=== PATIENT | female | born 1990 | race Caucasian/White ===

== ENCOUNTER → 2017-09-19 16:21 | Outpatient (CLI) | payer OTHER, SELFPAY ==
[2017-09-19 16:55] LABS: HCG Qualitative, Serum Negative (Negative)
== END ==
PROVIDERS: Visit Provider Internal Medicine
DX: Z34.90 Encounter for supervision of normal pregnancy, unspecified, unspecified trimester (principal)
CPT/HCPCS: 84703

== ENCOUNTER → 2017-11-09 14:03 | Outpatient (CLI) | payer OTHER, SELFPAY ==
--- NOTE | 2017-11-09 14:05 | XR_ITS ---
XR chest 2V HISTORY: ITS.REASON: cough ORDERING PHYSICIAN: CLEVE Kowalski PATIENT AGE: 27 years COMPARISON: 03/21/2012 FINDINGS: The cardiomediastinal silhouette and pulmonary vascularity are within normal limits. The lungs are clear without infiltrates, suspicious nodules, or pleural effusions. No acute bony abnormalities. IMPRESSION: Negative chest, no acute finding
== END ==
PROVIDERS: PCP Internal Medicine; Visit Provider Physician Assistant
DX: R05 Cough (principal)
CPT/HCPCS: 71046

== ENCOUNTER → 2018-01-27 15:58 | Outpatient (CLI) | payer OTHER, SELFPAY ==
--- NOTE | 2018-01-27 16:00 | XR_ITS ---
XR chest 2V HISTORY: ITS.REASON: PERSISTENT COUGH ORDERING PHYSICIAN: Brody Fernandez PATIENT AGE: 27 years COMPARISON: 11/09/2017 FINDINGS: The cardiomediastinal silhouette and pulmonary vascularity are within normal limits. The lungs are clear without infiltrates, suspicious nodules, or pleural effusions. No acute bony abnormalities. IMPRESSION: Negative chest, no acute finding
== END ==
PROVIDERS: PCP Internal Medicine; Visit Provider Internal Medicine
DX: R05 Cough (principal)
CPT/HCPCS: 71046

== ENCOUNTER → 2018-02-16 14:45 | Outpatient (CLI) | payer OTHER, SELFPAY ==
[2018-02-16 16:02] LABS: HCG,Quantitative 0 mIU/mL
== END ==
PROVIDERS: Visit Provider Obstetrics & Gynecology
DX: Z34.90 Encounter for supervision of normal pregnancy, unspecified, unspecified trimester (principal)
CPT/HCPCS: 36415; 84702

== ENCOUNTER → 2018-06-12 16:17 | Outpatient (CLI) | payer OTHER, SELFPAY ==
[2018-06-12 16:52] LABS: Basophils % 0.5 % (0.1-2.0); Eosinophils # 0.1 K/mm3 (0.0-0.4); Eosinophils % 1.5 % (0.1-12.0); Hemoglobin 12.5 g/dL (12.2-16.2); Lymphocytes # 2.1 K/mm3 (0.7-4.5); Lymphocytes % 23.9 % (10-50); Mean Corpuscular HGB Conc 32.9 g/dL (31.8-35.4); Mean Corpuscular Hemoglobin 26.8 pg (27.0-31.2); Mean Corpuscular Volume 81.6 fl (81-99); Mean Platelet Volume 7.3 fl (7.4-10.4); Monocytes # 0.4 K/mm3 (0.1-1.0); Monocytes % 4.6 % (1.7-9.3); Neutrophils # 6.1 K/mm3 (1.8-7.8); Neutrophils % 69.5 % (37.0-80.0); Platelet Count 381 K/mm3 (142-424); Red Blood Count 4.66 M/mm3 (4.20-5.40); White Blood Count 8.8 K/mm3 (4.8-10.8)
[2018-06-12 17:58] LABS: Anion Gap 16.3 mEq/L (5-15); Blood Urea Nitrogen 11 mg/dL (7-18); Carbon Dioxide 25 mmol/L (21.0-32.0); Chloride 103 mmol/L (98-107); Estimated Glomerular Filt Rate 86 ml/min (>60); Free T4 (Free Thyroxine) 1.05 ng/dl (0.76-1.46); GFR (African American) 104 ML/MIN (>60); Glucose 102 mg/dL (74-106); HCG,Quantitative 0 mIU/mL; Potassium 4.3 mmoL/L (3.5-5.1); Sodium 140 mmol/L (136-145); Thyroid Stimulating Hormone 1.49 uIU/ml (0.358-3.740)
== END ==
PROVIDERS: Visit Provider Urology
DX: N89.8 Other specified noninflammatory disorders of vagina (principal); N91.2 Amenorrhea, unspecified; R53.83 Other fatigue
CPT/HCPCS: 36415; 80048; 84439; 84443; 84702; 85025

== ENCOUNTER → 2019-01-15 15:04 | Outpatient (CLI) | payer OTHER, SELFPAY ==
[2019-01-15 15:28] LABS: Basophils % 0.5 % (0.1-2.0); Eosinophils # 0.2 K/mm3 (0.0-0.4); Eosinophils % 2.5 % (0.1-12.0); Hematocrit 42.3 % (37.0-47.0); Hemoglobin 13.5 g/dL (12.2-16.2); Lymphocytes # 2.4 K/mm3 (0.7-4.5); Lymphocytes % 28.4 % (10-50); Mean Corpuscular Hemoglobin 27.8 pg (27.0-31.2); Mean Corpuscular Volume 86.8 fl (81-99); Monocytes # 0.4 K/mm3 (0.1-1.0); Monocytes % 5.1 % (1.7-9.3); Neutrophils # 5.4 K/mm3 (1.8-7.8); Neutrophils % 63.5 % (37.0-80.0); Platelet Count 457 K/mm3 (142-424); Red Blood Count 4.88 M/mm3 (4.20-5.40); Red Cell Distribution Width 12.7 % (11.5-17.5); White Blood Count 8.5 K/mm3 (4.8-10.8)
[2019-01-15 17:13] LABS: HCG Qualitative, Serum Negative (Negative)
[2019-01-15 17:27] LABS: Anion Gap 13.4 mEq/L (5-15); Blood Urea Nitrogen 11 mg/dL (7-18); Calcium 9.4 mg/dL (8.5-10.1); Carbon Dioxide 29 mmol/L (21.0-32.0); Chloride 101 mmol/L (98-107); Creatinine,Serum 0.58 mg/dL (0.55-1.02); Estimated Glomerular Filt Rate 125 ml/min (>60); Free T4 (Free Thyroxine) 0.98 ng/dl (0.76-1.46); GFR (African American) 151 ML/MIN (>60); Glucose 88 mg/dL (74-106); Potassium 4.4 mmoL/L (3.5-5.1); Sodium 139 mmol/L (136-145); Thyroid Stimulating Hormone 2.86 uIU/ml (0.358-3.740)
== END ==
PROVIDERS: Visit Provider Urology
DX: R50.9 Fever, unspecified (principal); R53.83 Other fatigue
CPT/HCPCS: 36415; 80048; 84439; 84443; 84703; 85025

== ENCOUNTER 2019-05-18 13:27 | Outpatient (RCR) | payer OTHER, SELFPAY | END 2019-05-18 14:00 | disposition home or self-care (01) | LOC: OT 13:27 | PROVIDERS: Visit Provider Orthopaedic Surgery | DX: S52.502A Unspecified fracture of the lower end of left radius, initial encounter for closed fracture (principal) | CPT/HCPCS: 97763 ==

== ENCOUNTER → 2019-05-29 08:41 | Outpatient (CLI) | payer OTHER, SELFPAY ==
--- NOTE | 2019-05-29 08:43 | XR_ITS ---
PROCEDURE: XR WRIST LT MIN 3V CLINICAL INDICATION: left wrist fracture, after cast removal Follow-up, and COMPARISON: XR HAND LT MIN 3V from 05/08/2019 XR WRIST LT MIN 3V from 05/08/2019 FINDINGS: There is a small curvilinear band of increased density at the distal radius at the epiphyseal remnant region suggesting a healing fracture. No displacement or other significant anomalies evident. IMPRESSION: Healing nondisplaced fracture distal radius Dictated by: Fabrizio Ramos MD 05/29/2019 09:08 Electronically signed by Fabrizio Ramos MD in [place] 05/29/2019 09:08
== END ==
PROVIDERS: PCP Internal Medicine; Visit Provider Orthopaedic Surgery
DX: S63.502A Unspecified sprain of left wrist, initial encounter (principal)
CPT/HCPCS: 73110

== ENCOUNTER 2019-08-01 15:00 | Outpatient (RCR) | payer OTHER, SELFPAY ==
--- NOTE | 2019-06-22 11:31 | HMH.OTOPEV ---
OT Inpatient Evaluation Rehab OT Outpatient Eval Start: 06/22/19 11:23 Freq: Status: Active Protocol: Document 06/22/19 11:23 NASIR (Rec: 06/22/19 11:31 [id number] [id number]) Electronically Signed By Martin Guevara OT 06/22/19 11:23 Outpatient Therapy Subjective History Subjective History Pt is a 29 year old female who reports to therapy due to L wrist fx. Pt fell on May 10, 2019 and landed on left wrist resulting in a distal radius fracture. Pt was in a cast for 14 days and then a removable wrist brace. Pt reports minimal pain and stiffness at left wrist. Pt demosntrates with slight decreased AROM and strength at left wrist. Pt will continue to be seen in order to decrease deficits. Chief Complaint Pain,Stiff,Weakness Symptom Type Ache,Throb,Sharp Symptoms Relieved By Nothing Symptoms Aggravated By Physical Activity,Lifting Prior Functional Limitations None Current Functional Limitations Reaching,Lifting,Housework, Recreation Activity Symptom Description Intermittent,Activity Dependent Level of pain today (0-10) 0 Pain scale - at its best (0-10) 0 Pain scale - at its worst (0-10) 5 Wrist/Hand Eval Wrist Range of Motion Left Wrist Extension Active Range of Motion ( 60 degrees degrees) Wrist Flexion Active Range of Motion ( 50 degrees degrees) Wrist Radial Deviation Active Range of 25 degrees Motion (degrees) Wrist Ulnar Deviation Active Range of 25 degrees Motion (degrees) Forearm Supination Active Range of 90 degrees Motion (degrees) Forearm Pronation Active Range of Motion 90 degrees (degrees) Wrist Manual Muscle Testing Left Wrist Extension Strength Grade 4- Good- Wrist Flexion Strength Grade 3+ Fair+ Wrist Radial Deviation Strength Grade 3+ Fair+ Wrist Ulnar Deviation Strength Grade 3+ Fair+ Forearm Supination Strength Grade 4- Good- Forearm Pronation Strength Grade 4- Good- OT Outpatient Assessment Impairments Problems/Impairments Palpation Tenderness,Impaired Range of Motion,Impaired Strength,Impaired Endurance, Impaired Lifting,Impaired Household Care,Impaired
== END 2019-08-01 15:05 | disposition home or self-care (01) ==
LOC: OT 15:00
PROVIDERS: PCP Internal Medicine; Visit Provider Orthopaedic Surgery
DX: S52.592D Other fractures of lower end of left radius, subsequent encounter for closed fracture with routine healing (principal)
CPT/HCPCS: 97014; 97110; 97140; 97165; G0283

== ENCOUNTER → 2019-09-05 12:44 | Outpatient (CLI) | payer OTHER, SELFPAY ==
[2019-09-05 13:29] LABS: Basophils % 0.5 % (0.1-2.0); Eosinophils # 0.3 K/mm3 (0.0-0.4); Eosinophils % 2.7 % (0.1-12.0); Hematocrit 41.8 % (37.0-47.0); Hemoglobin 14.1 g/dL (12.2-16.2); Lymphocytes # 2.3 K/mm3 (0.7-4.5); Lymphocytes % 25.3 % (10-50); Mean Corpuscular HGB Conc 33.7 g/dL (31.8-35.4); Mean Corpuscular Hemoglobin 28.1 pg (27.0-31.2); Mean Corpuscular Volume 83.3 fl (81-99); Mean Platelet Volume 7.5 fl (7.4-10.4); Monocytes # 0.4 K/mm3 (0.1-1.0); Monocytes % 4.7 % (1.7-9.3); Neutrophils # 6.1 K/mm3 (1.8-7.8); Neutrophils % 66.8 % (37.0-80.0); Platelet Count 426 K/mm3 (142-424); Red Blood Count 5.02 M/mm3 (4.20-5.40); Red Cell Distribution Width 13.1 % (11.5-17.5); White Blood Count 9.1 K/mm3 (4.8-10.8)
[2019-09-05 14:03] LABS: Chloride 102 mmol/L (98-107)
[2019-09-05 14:04] LABS: Potassium 4.8 mmoL/L (3.5-5.1); Sodium 137 mmol/L (136-145)
[2019-09-05 14:06] LABS: Alanine Aminotransferase 30 U/L (12-78); Alkaline Phosphatase 69 U/L (38-126); Anion Gap 12.8 mEq/L (5-15); Aspartate Amino Transferase 27 U/L (14-36); Bilirubin,Direct 0.3 mg/dl (0.0-0.4); Bilirubin,Total 0.3 mg/dl (0.2-1.3); Bilirubin,Unconjugated 0.1 mg/dL (0.0-1.1); Blood Urea Nitrogen 11 mg/dl (7-17); Carbon Dioxide 27 mmol/L (22.0-30.0); Cholesterol 146 mg/dl (140-200); Estimated Glomerular Filt Rate 147 ml/min (>60); GFR (African American) 178 ML/MIN (>60); Triglycerides 254 mg/dl (30-150); VLDL Cholesterol 51 mg/dL (0-40)
[2019-09-05 14:07] LABS: Albumin Level 4.4 g/dl (3.5-5.0); Calcium 9.4 mg/dl (8.4-10.2); Chol/HDL Ratio 2.6 (1-3.5); Glucose 97 mg/dl (74-100); HDL Cholesterol 56 mg/dl (40-60); Total Protein,Serum 7.7 g/dl (6.3-8.2)
[2019-09-05 14:19] LABS: Direct LDL Cholesterol 69.53 mg/dL (100-129)
[2019-09-05 14:25] LABS: Free T4 (Free Thyroxine) 1.18 ng/dl (0.78-2.19)
[2019-09-05 14:38] LABS: Thyroid Stimulating Hormone 1.71 uIU/mL (0.465-4.68)
[2019-09-05 20:57] LABS: Coronavirus 19 IgG Antibody Negative (Negative); Coronavirus 19 IgM Antibody Negative (Negative)
== END ==
PROVIDERS: Visit Provider Internal Medicine
DX: R06.00 Dyspnea, unspecified (principal); Z79.899 Other long term (current) drug therapy; Z03.818 Encounter for observation for suspected exposure to other biological agents ruled out
CPT/HCPCS: 36415; 80048; 80061; 80076; 84439; 84443; 85025; 86328

== ENCOUNTER → 2019-10-12 10:58 | Outpatient (CLI) | payer OTHER, SELFPAY ==
--- NOTE | 2019-10-12 11:08 | CT_ITS ---
PROCEDURE: CT ABDOMEN PELVIS W CON CLINICAL INDICATION: ELEVATED DHEA, PCOS, IRREGULAR PERIODS COMPARISON: ABDPELW/WO CT ABD PELVIS W/WO CONTRAST from 12/05/2016 TECHNIQUE: IV Contrast: 75ML OPTIRAY 350 Oral Contrast None Axial images obtained with sagittal and coronal reformats. All CT scans at the facility use one or more dose reduction, viz: automated exposure control, ma/kV adjustment per patient size (including targeted exams where dose is matched to indication, i.e. head), or iterative reconstruction technique. FINDINGS: LOWER THORAX: No acute finding. Included extent of the lung bases are clear. ABDOMEN & PELVIS: Hepatobiliary: There is decreased attenuation of the liver, consistent with steatosis. No discrete hepatic lesion is identified. The gallbladder is surgically absent. Unremarkable biliary ductal system. Pancreas: The pancreas is normal. Spleen: There is a calcified granuloma of the spleen. The spleen is not enlarged. There is an accessory splenule. Adrenals: The adrenal glands are normal. Kidneys, ureters and bladder: Both kidneys have normal size and morphology. There is no hydronephrosis. Both ureters have normal course and caliber. The urinary bladder is unremarkable with uniform wall thickness. Gastrointestinal: The stomach is unremarkable. Fluid filled normally distended small bowel loops are seen. There is possible diffuse submucosal edema with minimal wall thickening of the ascending, transverse and most of the descending colon is seen without pericolonic inflammatory fatty stranding. There is no evidence of mechanical bowel obstruction. Reproductive organs: Normal-appearing anteverted uterus. Small bilateral adnexal/ovarian cysts are seen. Lymphatic system: There is no adenopathy demonstrated within abdomen/pelvis. Vasculature: Normal caliber abdominal aorta. Peritoneum: No free fluid or free intraperitoneal air is seen. Abdominal wall and musculoskeletal: Diastasis of the rectus abdominus with midline mild anterior protrusion of the mesentry and small bowel at the level of the umbilicus. Moderate degenerative disc/endplate changes with vacuum phenomena is seen at L5-S1. IMPRESSION: 1.Possible colitis with diffuse submucosal edema and mild wall thickening of the ascending, transverse and descending colon present. Recommend clinical correlation. 2. Hepatic steatosis. 3. At L5-S1 degenerative disc/spondylitic changes are seen. Dictated by: Lashawn Menjivar 10/12/2019 12:33 Electronically signed by Lashawn Menjivar in [facility] 10/12/2019 12:33
--- NOTE | 2019-10-12 11:08 | CT_ITS ---
PROCEDURE: CT HEAD/BRAIN WO/W CON CLINICAL INDICATION: ELEVATED DHEA, PCOS, IRREGULAR PERIODS COMPARISON: No exams were available for comparison TECHNIQUE: IV Contrast: 100ML OPITRAY 320 Axial images obtained. All CT scans at the facility use one or more dose reduction, viz: automated exposure control, ma/kV adjustment per patient size (including targeted exams where dose is matched to indication, i.e. head), or iterative reconstruction technique. FINDINGS: No midline shift, mass effect, intracranial hemorrhage, hydrocephalus, or extra-axial fluid collection is evident. Preserved sylvester-white matter differentiation.. The calvarium has an unremarkable appearance. Mastoids. Demonstrated mild/moderate inflammatory mucoperiosteal thickening of the visualized right sphenoid sinus and bilateral ethmoid air cells IMPRESSION: 1. No acute intracranial abnormality is demonstrated. 2. Ethmoid and right sphenoid chronic sinusitis. Dictated by: Lashawn Menjivar 10/12/2019 16:33 Electronically signed by Lashawn Menjivar in [facility] 10/12/2019 16:33
--- NOTE | 2019-10-12 11:08 | CT_ITS ---
PROCEDURE: CT CHEST W CON CLINCAL INDICATION: ELEVATED DHEA, PCOS, IRREGULAR PERIODS COMPARISON: CT ABDOMEN PELVIS W CON from 10/12/2019 TECHNIQUE: IV Contrast: 75ml Optiray 350 Axial images obtained with sagittal and coronal reformats. All CT scans at the facility use one or more dose reduction, viz: automated exposure control, ma/kV adjustment per patient size (including targeted exams where dose is matched to indication, i.e. head), or iterative reconstruction technique. FINDINGS: HEART AND MEDIASTINAL STRUCTURES: The heart is top-normal in size. There is no pericardial effusion. The aorta and great vessels are normal in caliber pain the central pulmonary arteries are patent. Multiple subcarinal calcified lymph nodes are seen from old granulomatous process. Otherwise no significant mediastinal/hilar lymphadenopathy is demonstrated. Reactive lymph nodes are seen in both axilla. The trachea and mainstem bronchi are patent. The thoracic esophagus is unremarkable in course and caliber. LUNGS AND PLEURAL SPACES: Mild dependent atelectatic changes are seen posteriorly in the lower lung lobes. The lungs are clear with no infiltrates, effusion or masses. There is no pneumothorax. BONY STRUCTURES: No acute bony abnormalities apparent. The osseous structures in the chest appear intact. UPPER ABDOMEN: There is decreased attenuation of the liver parenchyma, consistent with hepatic steatosis. ADDITIONAL FINDINGS: No other significant abnormalities. IMPRESSION: Essentially unremarkable CT exam of the chest. Dictated by: Lashawn Menjivar 10/12/2019 12:42 Electronically signed by Lashawn Menjivar in [facility] 10/12/2019 12:42
--- NOTE | 2019-10-12 11:09 | CT_ITS ---
PROCEDURE: CT SOFT TISSUE NECK W CON CLINICAL HISTORY: ELEVATED DHEA, PCOS, IRREGULAR PERIODS COMPARISON: No exams were available for comparison TECHNIQUE: Oral Contrast: None IV Contrast: 35 mL Optiray 350. Axial images obtained with sagittal and coronal reformats. All CT scans at the facility use one or more dose reduction, viz: automated exposure control, ma/kV adjustment per patient size (including targeted exams where dose is matched to indication, i.e. head), or iterative reconstruction technique. FINDINGS: Nasopharynx, oropharynx and hypopharynx: Appears normal. Larynx: The epiglottis and larynx appear normal. Retropharyngeal space: Unremarkable. Submandibular/parotid glands: Unremarkable. Thyroid gland: Unremarkable. No enlarged or calcified thyroid nodules identified. Lymph nodes: There is no cervical lymphadenopathy. Trachea: The visualized trachea is unremarkable. Included extend of the lung apices are clear. Bones/joints: There is straightening of normal cervical lordosis, suggestive of muscle spasm or positional. The vertebral body and disc space heights are maintained. Moderate right maxillary/right sphenoid chronic sinusitis. Mild/moderate ethmoid and left maxillary chronic sinusitis. IMPRESSION: 1.Unremarkable CT soft tissue neck. 2. Nonspecific straightening of normal cervical lordosis, question muscle spasm versus positional. 3. Moderate chronic sinusitis. Dictated by: Lashawn Menjivar 10/12/2019 12:55 Electronically signed by Lashawn Menjivar in [place] 10/12/2019 12:55
--- NOTE | 2019-10-12 11:53 | HMH.ITSHM ---
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 []METFORMIN
== END ==
PROVIDERS: PCP Internal Medicine; Visit Provider Obstetrics & Gynecology
DX: E27.8 Other specified disorders of adrenal gland (principal); E28.2 Polycystic ovarian syndrome; N92.6 Irregular menstruation, unspecified
CPT/HCPCS: 70470; 70491; 71260; 74177; Q9967

== ENCOUNTER → 2019-10-30 12:46 | Outpatient (CLI) | payer OTHER, SELFPAY ==
[2019-10-31 13:03] LABS: Progesterone 0.2 ng/mL (.)
[2019-11-04 15:09] LABS: Estrogen 113 pg/mL (.)
== END ==
PROVIDERS: Visit Provider Nurse Practitioner Family
DX: R79.89 Other specified abnormal findings of blood chemistry (principal)
CPT/HCPCS: 36415; 82672; 84144

== ENCOUNTER → 2019-11-02 08:15 | Outpatient (CLI) | payer OTHER, SELFPAY ==
[2019-11-03 10:16] LABS: Estradiol 19.2 pg/mL (.); FSH 5.7 mIU/mL (.); LH 7.2 mIU/mL (.)
== END ==
PROVIDERS: Urology; Visit Provider Nurse Practitioner Family
DX: N92.6 Irregular menstruation, unspecified (principal)
CPT/HCPCS: 36415; 82670; 83001; 83002

== ENCOUNTER → 2019-11-13 09:22 | Outpatient (CLI) | payer OTHER, SELFPAY ==
--- NOTE | 2019-11-13 09:26 | US_ITS ---
PROCEDURE: US TRANSVAGINAL CLINICAL INDICATION: irregular menstrual cycle, history of polycystic ovaries COMPARISON: US PTV US PELVIS-TRANSVAGINAL ONLY from 12/05/2016 FINDINGS: The uterus is normal in size and shows homogeneous echogenicity. The endometrial echo appears normal. The ovaries are normal in size and there are multiple small follicular cyst left ovary. The right ovary is normal in size and shows a few small follicular cyst but in addition there is a dominant cystic structure measuring 1.7 x 1.4 by 1.6 cm. There is no cul-de-sac fluid. IMPRESSION: Normal appearing uterus, multiple small follicular cysts in each ovary in addition to a dominant and likely functional cyst right ovary Dictated by: Dr. Jeremy Santo MD 11/13/2019 11:54 Dr. Jeremy Santo MD in [place] 11/13/2019 11:54
== END ==
PROVIDERS: PCP Internal Medicine; Visit Provider Urology
DX: N92.6 Irregular menstruation, unspecified (principal); N83 Noninflammatory disorders of ovary, fallopian tube and broad ligament
CPT/HCPCS: 76830

== ENCOUNTER → 2019-12-24 12:00 | Outpatient (CLI) | payer OTHER, SELFPAY ==
[2019-12-25 12:24] LABS: Progesterone 9.1 ng/mL (.)
== END ==
PROVIDERS: Visit Provider Urology
DX: Z01.419 Encounter for gynecological examination (general) (routine) without abnormal findings (principal)
CPT/HCPCS: 84144

== ENCOUNTER → 2020-02-15 13:40 | Outpatient (CLI) | payer OTHER, SELFPAY ==
--- NOTE | 2020-02-15 13:41 | US_ITS ---
PROCEDURE: US TRANSVAGINAL CLINICAL INDICATION: PCOS Polycystic ovarian syndrome COMPARISON: US US TRANSVAGINAL from 11/13/2019 FINDINGS: UTERUS: 8cm x 6cmx 4cm with a combined endometrial thickness of 6.4mm. scar is noted. LEFT OVARY: 2vol7yyz0.2cm with a volume of 7.2ml. RIGHT OVARY: [id number] with a volume of 6.1ml. There are multiple follicles present in both ovaries. The number of follicles however appears less than when compared to 11/13/2019 exam. IMPRESSION: Multiple small bilateral ovarian follicles which have decreased in number compared to the previous study. Dictated by: Fabrizio Ramos MD 02/15/2020 17:19 Fabrizio Ramos MD in [place] 02/15/2020 17:19
== END ==
PROVIDERS: PCP Internal Medicine; Visit Provider Urology
DX: E28.2 Polycystic ovarian syndrome (principal)
CPT/HCPCS: 76830

== ENCOUNTER → 2020-03-17 15:10 | Outpatient (CLI) | payer OTHER, SELFPAY ==
[2020-03-17 16:11] LABS: HCG Qualitative, Serum Positive (Negative)
[2020-03-17 16:23] LABS: HCG,Quantitative 3479 mIU/ml (0-5.42)
== END ==
PROVIDERS: Visit Provider Nurse Practitioner Family
DX: N92.6 Irregular menstruation, unspecified (principal)
CPT/HCPCS: 36415; 84702; 84703

== ENCOUNTER → 2020-03-24 14:51 | Outpatient (CLI) | payer OTHER, SELFPAY ==
[2020-03-24 17:23] LABS: Coronavirus 19 IgG Antibody Negative (Negative); Coronavirus 19 IgM Antibody Negative (Negative)
== END ==
PROVIDERS: Visit Provider Urology
DX: Z11.52 Encounter for screening for COVID-19 (principal)
CPT/HCPCS: 36415; 86328

== ENCOUNTER → 2020-03-27 14:49 | Outpatient (CLI) | payer OTHER, SELFPAY | PROVIDERS: PCP Internal Medicine; Visit Provider Internal Medicine Adolescent Medicine | DX: Z20.822 Contact with and (suspected) exposure to COVID-19 (principal); U07.1 COVID-19 | CPT/HCPCS: U0003 ==

== ENCOUNTER 2020-05-05 14:53 | Emergency (ER) | payer OTHER, SELFPAY ==
[2020-05-05] VITALS (7 sets, daily range): BP systolic 152–169; BP diastolic 84–105; PULSE 69–102; RESP 16–20; TEMP 36.8; O2SAT 98–100; BMI 39.1
[2020-05-05 15:51] LABS: Basophils % 0.2 % (0.1-2.0); Eosinophils # 0.1 K/mm3 (0.0-0.4); Eosinophils % 0.9 % (0.1-12.0); Hematocrit 38.9 % (37.0-47.0); Hemoglobin 12.8 g/dL (12.2-16.2); Lymphocytes # 1.5 K/mm3 (0.7-4.5); Lymphocytes % 17.9 % (10-50); Mean Corpuscular Hemoglobin 27.1 pg (27.0-31.2); Mean Platelet Volume 7.7 fl (7.4-10.4); Monocytes # 0.4 K/mm3 (0.1-1.0); Monocytes % 4.7 % (1.7-9.3); Neutrophils # 6.5 K/mm3 (1.8-7.8); Neutrophils % 76.3 % (37.0-80.0); Platelet Count 372 K/mm3 (142-424); Red Blood Count 4.74 M/mm3 (4.20-5.40); Red Cell Distribution Width 13.2 % (11.5-17.5); White Blood Count 8.6 K/mm3 (4.8-10.8)
[2020-05-05 16:05] LABS: Chloride 104 mmol/L (98-107); Sodium 135 mmol/L (136-145)
[2020-05-05 16:07] LABS: Alanine Aminotransferase 49 U/L (12-78); Aspartate Amino Transferase 39 U/L (14-36); Blood Urea Nitrogen 5 mg/dl (7-17); Creatinine Clearance Estimated 375 mL/min (50-200); Estimated Glomerular Filt Rate 190 ml/min (>60); GFR (African American) 230 ML/MIN (>60)
[2020-05-05 16:08] LABS: Albumin Level 4.2 g/dl (3.5-5.0); Albumin/Globulin Ratio 1.2 (1.1-1.8); Alkaline Phosphatase 74 U/L (38-126); Bilirubin,Total 0.4 mg/dl (0.2-1.3); Calcium 9.7 mg/dl (8.4-10.2); Carbon Dioxide 24 mmol/L (22.0-30.0); Globulin 3.6 g/dL (1.3-3.2); Glucose 92 mg/dl (74-100); Lipase 42 U/L (23-300); Total Protein,Serum 7.8 g/dl (6.3-8.2)
[2020-05-05 17:00] LABS: HCG,Quantitative 20425 mIU/ml (0-5.42)
[2020-05-05 17:43] LABS: Microscopic, Urine URINE MICROSCOPIC (MICROSCOPIC)
[2020-05-05 17:45] LABS: Appearance,Urine SL CLOUDY (Clear); Bilirubin,Urine Negative (Negative); Blood, Urine Negative (Negative); Color,Urine YELLOW (Yellow); Glucose,Urine (UA) Negative (Negative); Ketones,Urine 3+ (Negative); Leukocyte Esterase,Urine TRACE (Negative); Nitrate,Urine Negative (Negative); Protein,Urine Negative (Negative); Specific Gravity, Urine >= 1.030 (1.005-1.030); Urobilinogen,Urine 0.2 EU/dl (0.2)
--- NOTE | 2020-05-05 18:22 | HMH.EDNVD ---
ED Disposition Clinical Impression: Hyperemesis gravidarum Disposition: Home, Self-Care Condition on Discharge: Good Instructions: DI for Hyperemesis Gravidarum Prescriptions: Promethazine HCl [Phenergan 25mg Suppository] 25 mg RC BID #10 supp.rect Transmission Status: Pending to [facility] Ondansetron [Zofran 4mg ODT] 4 mg PO BIDP PRN #10 tab PRN Reason: Nausea Transmission Status: Pending to Clinic [facility] Referrals: Brody Fernandez [Primary Care Provider] - - Critical Care Critical Care Time: No Attestation: On 05/05/20, the high probability of a clinically significant, sudden or life threatening deterioration of the following system(s) required my full and direct attention, intervention and personal management. The time I documented below is in addition to time spent performing reported procedures but includes the following listed in this critical care notation. Medical Decision Making - Medical Records Medical records reviewed: Yes: I reviewed the patient's medical records. - Ga Inquiry Pt receiving controlled substance: No Vital Signs: 05/05/20 14:55 Temperature 98.2 F Temperature Source Oral Pulse Rate [Left Radial] 94 H Respiratory Rate 20 Blood Pressure [Right Arm] 169/98 H Blood Pressure Mean [Right Arm] 121 Blood Pressure Source [Right Arm] Automatic Cuff Blood Pressure Position [Right Arm] Sitting 02 Sat by Pulse Oximetry 99 Oxygen Delivery Method Room Air - Lab Data Lab Results 05/05/20 15:40: WBC 8.6, RBC 4.74, Hgb 12.8, Hct 38.9, MCV 82.0, MCH 27.1, MCHC 33.0, RDW 13.2, Plt Count 372, MPV 7.7, Neut % (Auto) 76.3, Lymph % (Auto) 17.9, [place] % (Auto) 4.7, Eos % (Auto) 0.9, Baso % (Auto) 0.2, Neut # (Auto) 6.5, Lymph # (Auto) 1.5, [place] # (Auto) 0.4, Eos # (Auto) 0.1, Baso # (Auto) 0.0 05/05/20 15:40: Sodium 135 L, Potassium 4.0, Chloride 104, Carbon Dioxide 24, Anion Gap 11.0, BUN 5 L, Creatinine 0.40 L, Estimated Creat Clear 375 H, Estimated GFR 190, Est GFR ( Amer) 230, Glucose 92, Calcium 9.7, Total Bilirubin 0.4, AST 39 H, ALT 49, Alkaline Phosphatase 74, Total Protein 7.8, Albumin 4.2, Globulin 3.6 H, Albumin/Globulin Ratio 1.2, Lipase 42, HCG, Quant [id number] H 05/05/20 17:28: Urine Color Yellow, Urine Appearance Sl cloudy, Urine pH 6.0, Ur Specific [place] >= 1.030, Urine Protein Negative, Urine Glucose (UA) Negative, Urine Ketones 3+, Urine Blood Negative, Urine Nitrate Negative, Urine Bilirubin Negative, Urine Urobilinogen 0.2, Ur Leukocyte Esterase Trace, Urine RBC None, Urine WBC 5-10, Ur Squamous Epith Cells 10-20, Urine Bacteria 2+ Result diagrams: 05/05/20 15:40 05/05/20 15:40 Orders (Tests/Meds): ED MEDICATIONS Discontinued Medications Generic Name Dose Route Start Last Admin Trade Name Guadalupe PRN Reason Stop Dose Admin Diphenhydramine HCl 25 mg 05/05/20 15:31 05/05/20 15:58 Diphenhydramine 50mg/Ml Vial IV 05/05/20 15:32 25 mg ONCE ONE Administration Sodium Chloride 1,000 mls @ 999 mls/hr 05/05/20 15:45 05/05/20 15:58 Sod Chlor 0.9% 1000ml Bag IV 05/05/20 16:45 999 mls/hr .Q1H1M MATT Administration Pyridoxine HCl 100 mg 05/05/20 15:31 05/05/20 15:45 Pyridoxine (Vitamin B6) 50mg Tablet PO 05/05/20 15:32 Not Given ONCE ONE ORDERS Category Date Time Status Urine Culture Stat Micro 05/05/20 17:28 Received - Reevaluation(s) Time: 18:28 Reevaluation #1: On reevaluation, the patient is feeling better. She is tolerating small amounts of oral intake. Patient did have a slightly elevated blood pressure, however she states that she has had this before in . She is not having any neurologic issues. Her liver laboratories appear normal. Patient has follow-up with her primary RN TELEMETRY in 48 hours. Patient was given strict return precautions. Verbalized understanding. Medical Decision Narrative: 29-year-old female presented to the emergency department with nausea and vomiting. Patient is cur
[2020-05-05 18:24] LABS: Bacteria,Urine 2+ /lpf
== END 2020-05-05 20:10 | disposition home or self-care (01) ==
PROVIDERS: Emergency Provider Emergency Medicine; PCP Internal Medicine
DX: O21.0 Mild hyperemesis gravidarum (principal); E11.9 Type 2 diabetes mellitus without complications; Z79.84 Long term (current) use of oral hypoglycemic drugs; I10 Essential (primary) hypertension
CPT/HCPCS: 80053; 81001; 83690; 84702; 85025; 87086; 96365; 96366; 96375; 99283; J2405

== ENCOUNTER → 2020-06-26 14:47 | Outpatient (CLI) | payer OTHER, SELFPAY ==
[2020-06-26 16:55] LABS: Coronavirus 19 IgG Antibody Positive (Negative); Coronavirus 19 IgM Antibody Negative (Negative)
== END ==
PROVIDERS: Visit Provider Nurse Practitioner Family
DX: Z20.822 Contact with and (suspected) exposure to COVID-19 (principal)
CPT/HCPCS: 36415; 86328

== ENCOUNTER → 2021-04-14 08:34 | Outpatient (CLI) | payer OTHER, SELFPAY ==
[2021-04-14 10:14] LABS: HCG Qualitative, Serum Negative (Negative)
[2021-04-14 16:10] LABS: HCG,Quantitative 107 mIU/ml (0-5.42)
== END ==
PROVIDERS: PCP Internal Medicine; Visit Provider Nurse Practitioner Family
DX: N92.6 Irregular menstruation, unspecified (principal)
CPT/HCPCS: 36415; 84702; 84703

== ENCOUNTER → 2021-04-20 09:27 | Outpatient (CLI) | payer OTHER, SELFPAY ==
[2021-04-20 10:43] LABS: HCG,Quantitative 1399 mIU/ml (0-5.42)
== END ==
PROVIDERS: PCP Internal Medicine; Visit Provider Internal Medicine
DX: O21.0 Mild hyperemesis gravidarum (principal)
CPT/HCPCS: 36415; 84702

== ENCOUNTER → 2021-05-04 15:27 | Outpatient (CLI) | payer OTHER, SELFPAY ==
[2021-05-04 17:31] LABS: HCG,Quantitative 34935 mIU/ml (0-5.42)
== END ==
PROVIDERS: Visit Provider Nurse Practitioner Family
DX: Z34.90 Encounter for supervision of normal pregnancy, unspecified, unspecified trimester (principal)
CPT/HCPCS: 84702

== ENCOUNTER 2021-07-04 11:42 | Emergency (ER) | payer OTHER, BC, SELFPAY ==
[2021-07-04 11:44] VITALS: BMI 40.3
[2021-07-04 12:15] VITALS: BP 130/86; PULSE 79; RESP 17; O2SAT 100
--- NOTE | 2021-07-04 12:43 | PC.NURSE ---
FHT 152
[2021-07-04 12:52] LABS: Basophils # 0.1 K/mm3 (0-0.2); Basophils % 0.9 % (0.1-2.0); Eosinophils # 0.1 K/mm3 (0.0-0.4); Eosinophils % 1.1 % (0.1-12.0); Hematocrit 37.5 % (37.0-47.0); Hemoglobin 12.8 g/dL (12.2-16.2); Lymphocytes # 1.3 K/mm3 (0.7-4.5); Lymphocytes % 20.3 % (10-50); Mean Corpuscular Hemoglobin 27.6 pg (27.0-31.2); Mean Corpuscular Volume 81.2 fl (81-99); Mean Platelet Volume 8.1 fl (7.4-10.4); Monocytes # 0.3 K/mm3 (0.1-1.0); Monocytes % 5.4 % (1.7-9.3); Neutrophils # 4.6 K/mm3 (1.8-7.8); Neutrophils % 72.4 % (37.0-80.0); Platelet Count 358 K/mm3 (142-424); Red Blood Count 4.62 M/mm3 (4.20-5.40); White Blood Count 6.3 K/mm3 (4.8-10.8)
[2021-07-04 12:55] LABS: Chloride 105 mmol/L (98-107); Potassium 3.8 mmoL/L (3.5-5.1); Sodium 135 mmol/L (136-145)
[2021-07-04 12:58] LABS: Alanine Aminotransferase 18 U/L (12-78); Albumin Level 3.8 g/dl (3.5-5.0); Albumin/Globulin Ratio 1.2 (1.1-1.8); Alkaline Phosphatase 83 U/L (38-126); Anion Gap 9.8 mEq/L (5-15); Aspartate Amino Transferase 27 U/L (14-36); Bilirubin,Total 0.4 mg/dl (0.2-1.3); Blood Urea Nitrogen 6 mg/dl (7-17); Carbon Dioxide 24 mmol/L (22.0-30.0); Creatinine Clearance Estimated 368 mL/min (50-200); Estimated Glomerular Filt Rate 187 ml/min (>60); GFR (African American) 227 ML/MIN (>60); Globulin 3.2 g/dL (1.3-3.2)
[2021-07-04 12:59] LABS: Calcium 8.4 mg/dl (8.4-10.2); Glucose 79 mg/dl (74-100)
--- NOTE | 2021-07-04 13:22 | US_ITS ---
PROCEDURE INFORMATION: Exam: US , Transvaginal Exam date and time: 07/04/2021 2:05 PM Age: 31 years old Clinical indication: complicated by abdominal or pelvic pain; Left lower quadrant; Second trimester (14 weeks 0 days to 27 weeks 6 days); Gestational age or lmp: 15 w 6 d; ; Prior surgery; Surgery date: 6+ months; Surgery type: Torsion surgery 2014, patient not sure if it was left or right; Additional info: Llq abd pain 16 weeks preg TECHNIQUE: Imaging protocol: Real-time transvaginal obstetrical ultrasound of the maternal pelvis with image documentation. Transvaginal imaging was used for better evaluation of the fetus, adnexa, and/or cervix. COMPARISON: US TRANSVAGINAL 02/15/2020 1:55 PM FINDINGS: Gestation: The Intrauterine gestation. heart rate: Heart rate 150 beats per minute presentation: Single fetus cephalic presentation Placenta: Posterior grade 1 BIOMETRY: Biparietal diameter (BPD): Biparietal diameter 3.2 cm 16 weeks 0 days. Head circumference: Head circumference 11.7 cm. 15 weeks 6 days. Abdominal circumference (AC): Abdominal circumference 10.14 cm. 16 weeks 2 days. Femur length (FL): Femur length 2 cm 16 weeks 0 days. Other findings: Limited transvaginal ultrasound. Right and left ovary. Unremarkable. IMPRESSION: Single intrauterine gestation. AUA 16 weeks 1 day. CHRISTY 12/18/2021. Note 2 day discrepancy between CHRISTY by menstrual dating (12/20/2021) and ultrasound dating
[2021-07-04 14:03] LABS: HCG,Quantitative 14674 mIU/ml (0-5.42)
--- NOTE | 2021-07-04 14:48 | PC.NURSE ---
Kristen was called is on for
--- NOTE | 2021-07-04 14:50 | HMH.EDGENADL ---
ED Disposition Clinical Impression: Abdominal pain Qualifiers: Abdominal location: left lower quadrant Qualified Code(s): R10.32 - Left lower quadrant pain Disposition: Home, Self-Care Condition on Discharge: Good Additional Instructions: Please follow-up with your environmental monitoring technician and please go to OB triage at [facility] with any new or worsening symptoms including worsening pain, vaginal bleeding or any other new or symptoms. If you are unable to get to [facility], you are always welcome to be evaluated for worsening symptoms in the emergency department. Referrals: Brody Fernandez [Primary Care Provider] - - Critical Care Critical Care Time: No Attestation: On 07/04/21, the high probability of a clinically significant, sudden or life threatening deterioration of the following system(s) required my full and direct attention, intervention and personal management. The time I documented below is in addition to time spent performing reported procedures but includes the following listed in this critical care notation. Medical Decision Making - Ga Inquiry Pt receiving controlled substance: No Vital Signs: 07/04/21 12:15 Pulse Rate 79 Respiratory Rate 17 Blood Pressure 130/86 02 Sat by Pulse Oximetry 100 - Lab Data Lab Results 07/04/21 12:00: HCG, Quant [id number] H 07/04/21 12:40: WBC 6.3, RBC 4.62, Hgb 12.8, Hct 37.5, MCV 81.2, MCH 27.6, MCHC 34.0, RDW 14.0, Plt Count 358, MPV 8.1, Neut % (Auto) 72.4, Lymph % (Auto) 20.3, [place] % (Auto) 5.4, Eos % (Auto) 1.1, Baso % (Auto) 0.9, Neut # (Auto) 4.6, Lymph # (Auto) 1.3, [place] # (Auto) 0.3, Eos # (Auto) 0.1, Baso # (Auto) 0.1 07/04/21 12:40: Sodium 135 L, Potassium 3.8, Chloride 105, Carbon Dioxide 24, Anion Gap 9.8, BUN 6 L, Creatinine 0.40 L, Estimated Creat Clear 368 H, Estimated GFR 187, Est GFR ( Amer) 227, Glucose 79, Calcium 8.4, Total Bilirubin 0.4, AST 27, ALT 18, Alkaline Phosphatase 83, Total Protein 7.0, Albumin 3.8, Globulin 3.2, Albumin/Globulin Ratio 1.2 07/04/21 15:35: Urine Color Yellow, Urine Appearance Clear, Urine pH 5.5, Ur Specific [place] >= 1.030, Urine Protein Negative, Urine Glucose (UA) Negative, Urine Ketones 3+, Urine Blood Negative, Urine Nitrate Negative, Urine Bilirubin Negative, Urine Urobilinogen 0.2, Ur Leukocyte Esterase Negative Result diagrams: 07/04/21 12:40 07/04/21 12:40 Orders (Tests/Meds): ORDERS Category Date Time Status Type and Screen Stat BBK 07/04/21 14:55 Received Medical Decision Narrative: 31-year-old female that is 16 weeks with history of ovarian torsion in the past presents emergency department with sudden onset transient pain last evening so significant that she vomited with some left lower quadrant pain today without peritonitis abdomen on physical examination. Patient has not had dysuria, fevers or other constitutional symptoms and bedside ultrasound was performed which did not show any evidence of hydronephrosis bilaterally, with patient also not having CVA tenderness. Urinalysis, type and screen, quantitative beta-hCG, CBC, CMP performed in the emergency department with transvaginal ultrasound ordered, not showing any evidence of ovarian torsion. The patient's environmental monitoring technician at [facility] was called and informed of this, with urinalysis also nonactionable and [facility] environmental monitoring technician recommending patient directly follow-up with OB triage at [facility] should patient have recurrent symptoms. This was communicated to the patient and patient was able to be discharged from the emergency department without evidence of obstructing stone, ovarian torsion or acute ovarian pathology, without evidence of urinary tract infection or other acutely concerning pathology. General Adult HPI - General Stated complaint: 16 weeks , vomiting, abd pain, possible de Time Seen by Provider: 07/04/21 12:15 - History of Present Illness HPI narrative:
[2021-07-04 15:44] LABS: Microscopic, Urine URINE MICROSCOPIC (MICROSCOPIC)
--- NOTE | 2021-07-04 15:51 | PC.NURSE ---
Dr Gutierrez speaking with ob from [facility]
[2021-07-04 16:06] LABS: Appearance,Urine CLEAR (Clear); Blood, Urine Negative (Negative); Color,Urine YELLOW (Yellow); Glucose,Urine (UA) Negative (Negative); Ketones,Urine 3+ (Negative); Leukocyte Esterase,Urine Negative (Negative); Nitrate,Urine Negative (Negative); PH,Urine 5.5 (5.0-8.5); Protein,Urine Negative (Negative); Specific Gravity, Urine >= 1.030 (1.005-1.030); Urobilinogen,Urine 0.2 EU/dl (0.2)
[2021-07-04 16:15] LABS: Bilirubin,Urine Negative (Negative)
[2021-07-04 16:40] VITALS: BP 128/79; PULSE 76; RESP 18; TEMP 36.7; O2SAT 99
[2021-07-04 16:43] LABS: Squamous Epithelial Cell,Urine Occasional #/hpf (0-5)
== END 2021-07-04 16:40 | disposition home or self-care (01) ==
PROVIDERS: Emergency Provider Student in an Organized Health Care Education/Training Program; PCP Internal Medicine
DX: O26.892 Other specified pregnancy related conditions, second trimester (principal); O21.9 Vomiting of pregnancy, unspecified; O10.12 Pre-existing hypertensive heart disease complicating childbirth; O34.80 Maternal care for other abnormalities of pelvic organs, unspecified trimester; E28.2 Polycystic ovarian syndrome; Z79.84 Long term (current) use of oral hypoglycemic drugs; Z3A.16 16 weeks gestation of pregnancy
CPT/HCPCS: 36415; 76817; 80053; 81001; 84702; 85025; 86850; 99284

== ENCOUNTER 2022-05-03 19:09 | Emergency (ER) | payer OTHER, BC, SELFPAY ==
[2022-05-03 19:22] VITALS: BMI 39.1
--- NOTE | 2022-05-03 19:22 | XR_ITS ---
PROCEDURE INFORMATION: Exam: XR Left Elbow Exam date and time: 05/03/2022 8:08 PM Age: 31 years old Clinical indication: Injury or trauma; Fall; Blunt trauma (contusions or hematomas); Elbow; Left; Additional info: Fall onto left side. TECHNIQUE: Imaging protocol: Radiologic exam of the Left elbow. Views: 3 or more views. COMPARISON: CR XR FOREARM LT 2V 05/03/2022 8:06 PM FINDINGS: Bones/joints: Acute fracture at the volar to lateral radial head/neck junction with slight 1.5 mm impaction. No blastic or lytic lesions. Radiocapitellar alignment and ulnotrochlear alignment are normal. Proximal radioulnar alignment is normal. Slight fullness of the anterior and posterior joint recesses suspicious for small joint effusion. Soft tissues: No periostitis or osteolysis. No gross soft tissue abnormalities. No radiopaque foreign bodies. IMPRESSION: Slightly impacted fracture involving the volar to lateral radial head/neck junction with suspected minimal joint effusion.
--- NOTE | 2022-05-03 19:22 | XR_ITS ---
PROCEDURE INFORMATION: Exam: XR Left Forearm Exam date and time: 05/03/2022 8:06 PM Age: 31 years old Clinical indication: Injury or trauma; Blunt trauma (contusions or hematomas); Arm, lower; Patient HX: Fall onto left side. TECHNIQUE: Imaging protocol: Radiologic exam of the Left forearm. Views: 2 views. COMPARISON: CR XR WRIST LT MIN 3V 05/03/2022 8:05 PM FINDINGS: Bones/joints: Fracture of the left radial head/neck junction again noted, please see elbow report. The mid and distal left radius and ulna demonstrate no evidence of fracture. Proximal and distal radioulnar alignment is normal. Elbow joint alignment is normal. Carpal relationships are normal. No blastic or lytic lesions. No articular erosions. Soft tissues: No periostitis or osteolysis. No gross soft tissue abnormalities. No radiopaque foreign bodies are identified. Other findings: Normal mineralization. IMPRESSION: 1. The mid and distal radius and ulna are intact. 2. Fracture of the left radial head/neck junction again noted, please see elbow x-ray report.
--- NOTE | 2022-05-03 19:22 | XR_ITS ---
PROCEDURE INFORMATION: Exam: XR Left Wrist Exam date and time: 05/03/2022 8:05 PM Age: 31 years old Clinical indication: Injury or trauma; Blunt trauma (contusions or hematomas); Patient HX: Left wrist pain due to fall. TECHNIQUE: Imaging protocol: Radiologic exam of the Left wrist. Views: 3 or more views. COMPARISON: CR XR WRIST LT MIN 3V 05/29/2019 8:49 AM FINDINGS: Bones/joints: No fractures. Carpal relationships are normal. Distal radioulnar alignment is normal. No blastic or lytic lesions. No gross erosive changes. Soft tissues: No periostitis or osteolysis. No gross soft tissue abnormalities. No radiopaque foreign bodies. IMPRESSION: No acute findings.
--- NOTE | 2022-05-03 19:22 | XR_ITS ---
PROCEDURE INFORMATION: Exam: XR Left Hand Exam date and time: 05/03/2022 8:02 PM Age: 31 years old Clinical indication: Injury or trauma; Fall; Blunt trauma (contusions or hematomas); Hand; Patient HX: Patient fell onto left side. TECHNIQUE: Imaging protocol: Radiologic exam of the Left hand. Views: 3 or more views. COMPARISON: CR XR HAND LT MIN 3V 05/08/2019 7:56 PM FINDINGS: Bones/joints: No fractures. Carpal relationships are normal. Distal radioulnar alignment is normal. No blastic or lytic lesions. No articular erosive changes. Soft tissues: No periostitis or osteolysis. No gross soft tissue abnormalities. No radiopaque foreign bodies. IMPRESSION: No acute findings.
[2022-05-03 19:25] VITALS: BP 157/96; PULSE 118; RESP 20; TEMP 36.9; O2SAT 97; BMI 39.1
--- NOTE | 2022-05-03 19:34 | EXP.UTC ---
Discharge Plan Disposition Patient Disposition: Home, Self-Care Condition: Good Prescriptions Prescriptions: New ibuprofen [IBU] 800 mg tablet 800 mg PO Q8HP PRN (Reason: Moderate Pain) Qty: 30 0RF No Action norgestimate-ethinyl estradiol [Tri-Sprintec (28)] 0.18/0.215/0.25 mg-35 mcg (28) tablet 1 tab PO ONCE metformin 500 mg tablet 500 mg PO DAILY mupirocin 2 % ointment 1 applic TOPICAL BID 21 Days Qty: 22 1RF Rx Instructions: Apply to affected area up to twice daily doxycycline hyclate 100 mg tablet 100 mg PO BID 10 Days Qty: 20 0RF Referrals Follow up/Referrals: Brody Fernandez MD [Primary Care Provider] - See instructions Jose Oseguera DO [Staff Physician] - See instructions Activity Restrictions/Add. Instructions Additional Instructions/Restrictions: Rest the extremity, apply ice for 15 minutes as tolerated three or four times per day, Wear the sangita wrap for compression, Elevate the extremity as tolerated while you are resting. Take ibuprofen for pain. I sent in a prescription to your pharmacy. Follow up with Dr. Oseugera (orthopedics). I put in a referral but you need to call his office and schedule an appointment. Follow up with your regular doctor. GO TO THE ER FOR ANY WORSENING SYMPTOMS Clinical Impressions Clinical Impression: Left forearm pain, Elbow pain, left, Fall Instructions Patient Instructions: DI for Contusion, DI for Elbow Pain Discharge ED Provider: Simón Davis [facility] HPI General Stated complaint: left arm pain from a fall Time Seen by Provider: 05/03/22 19:34 History of Present Illness Provider Complaint: She states that she fell here at work when coming out of the OR onto wet unmarked floors. She slipped and fell and came down on her left elbow and forearm. She is currently having left elbow, forearm and wrist pain. This happened right before she came to the [facility]. She denies neck pain and any other injury. Related Data Home Medications Medication Instructions Recorded Confirmed norgestimate-ethinyl estradiol 1 tab PO ONCE 04/18/17 05/04/22 0.18 mg/0.215mg/0.25mg-35 mcg(28)tablet (Tri-Sprintec (28)) metformin 500 mg tablet 500 mg PO DAILY PCOS 04/07/21 05/04/22 Previous Rx's Medication Instructions Recorded mupirocin 2 % topical ointment 1 applic topical BID cellulitis 3 04/07/21 weeks #22 grams doxycycline hyclate 100 mg tablet 100 mg PO BID cellulitis 10 days 04/30/21 #20 tabs ibuprofen 800 mg tablet (IBU) 800 mg PO Q8HP PRN Moderate Pain 05/03/22 #30 tabs Allergies Allergy/AdvReac Type Severity Reaction Status Date / Time No Known Allergies Allergy Verified 05/04/22 13:15 [facility] Disclaimer: The information contained in this section may have been updated after the patient was seen, as this information can be updated by other users. Surgical History History of section History of cholecystectomy History of tonsillectomy History of tubal ligation Social History Smoking Status: Never smoker alcohol intake: never substance use type: denies use current occupational status: employed Travel in the last 8 weeks: None ROS Obtained: Yes All systems reviewed & no additional complaints except as documented Constitutional Constitutional: Denies chills and Denies fever(s) Integumentary/Breasts Skin/Breast: Denies redness, Denies rash and Denies wounds Neurologic Neurologic: Denies paresthesias Physical Exam General General appearance: alert and in no apparent distress Head Head exam: atraumatic, normocephalic and normal inspection Eye Eye exam: Present normal appearance, PERRL and EOMI ENT ENT exam: Present normal exam, normal oropharynx, mucous membranes moist, TM's normal bilaterally and normal external ear exam Neck Neck exam: Present normal inspection, full ROM and trachea mi
[2022-05-03 20:55] VITALS: BP 157/96; PULSE 118; RESP 20; TEMP 36.9; O2SAT 97
--- NOTE | 2022-05-03 20:57 | PC.NURSE ---
SLING AND MARII WRAP APPLIED TO PATIENT'S LEFT ARM AT THIS TIME
== END 2022-05-03 20:59 | disposition home or self-care (01) ==
PROVIDERS: Emergency Provider Nurse Practitioner Family; PCP Internal Medicine
DX: M79.632 Pain in left forearm (principal); M25.522 Pain in left elbow; W18.39XA Other fall on same level, initial encounter; Y99.0 Civilian activity done for income or pay
CPT/HCPCS: 73080; 73090; 73110; 73130; 99213; G0463

== ENCOUNTER → 2022-06-01 12:36 | Outpatient (CLI) | payer OTHER, SELFPAY ==
--- NOTE | 2022-06-01 12:47 | XR_ITS ---
FINAL REPORT CLINICAL HISTORY: elbow fracture COMPARISON: May 03, 2022 FINDINGS: LEFT ELBOW 3 views were obtained. Radial neck with sclerosis and minimal callus formation. There is no joint effusion. The joint spaces are intact. There is no soft tissue abnormality. IMPRESSION: Subtle healing fracture of the radial neck. Reviewed, Interpreted and Dictated by Amadeo Cohen MD Transcribed by Ar Sosa Authenticated and [facility]
== END ==
PROVIDERS: PCP Internal Medicine; Visit Provider Orthopaedic Surgery
DX: S52.132A Displaced fracture of neck of left radius, initial encounter for closed fracture (principal)
CPT/HCPCS: 73080

== ENCOUNTER → 2022-06-29 13:02 | Outpatient (CLI) | payer OTHER, SELFPAY ==
--- NOTE | 2022-06-29 13:06 | XR_ITS ---
FINAL REPORT CLINICAL HISTORY: fracture..f/u COMPARISON: 06/01/2022 FINDINGS: LEFT ELBOW 3 views were obtained. There has been further interval healing a mildly impacted fracture of the radial neck. The joint spaces are intact. There is no soft tissue abnormality. IMPRESSION: Further healing of the mildly impacted radial neck fracture. Reviewed, Interpreted and Dictated by Michael Agarwal III, MD Transcribed by Kylie Ramos Authenticated and [facility]
== END ==
PROVIDERS: PCP Internal Medicine; Visit Provider Orthopaedic Surgery
DX: M25.522 Pain in left elbow (principal); S52.132A Displaced fracture of neck of left radius, initial encounter for closed fracture
CPT/HCPCS: 73080

== ENCOUNTER → 2022-09-20 16:30 | Outpatient (CLI) | payer BC, SELFPAY ==
[2022-09-22 08:20] LABS: Varicella Zoster IgG 2277 index (Immune >165)
== END ==
PROVIDERS: PCP Internal Medicine; Visit Provider Internal Medicine
DX: Z01.84 Encounter for antibody response examination (principal)
CPT/HCPCS: 36415; 86787

== ENCOUNTER 2024-09-27 07:13 | Outpatient (CLI) | payer BC, SELFPAY ==
--- OUTSIDE RECORDS SUMMARY | 2024-09-27 07:15 | XMS_ITS | Clinical Summary ---
Author Organization [facility] Address [address], [address] [place] [address] Care Team Providers Care Batch Heat Treat Operator Name Role Phone Brody Fernandez MD Primary Care Provider [phone] Allergies No known active allergies Medications metFORMIN (GLUCOPHAGE-XR) 750 MG extended release tablet Take 750 mg by mouth daily (with breakfast) Active ibuprofen (ADVIL;MOTRIN) 800 MG tablet Take 1 tablet by mouth every 8 hours as needed for Pain 40 tablet 11/04/2018 Active Social History Tobacco Use Types Packs/Day Years Used Date Smoking Tobacco: Never Smokeless Tobacco: Never Alcohol Use Standard Drinks/Week Comments Yes 0 (1 standard drink = 0.6 oz pur e alcohol) soc Comments No Sex and Gender Information Value Date Recorded Sex Assigned at Not on file Legal Sex Female 11:50 AM EDT Gender Identity Not on file Sexual Orientation Not on file Last Filed Vital Signs Vital Sign Reading Time Taken Comments Blood Pressure 130/81 11/04/2018 11:53 AM EDT Pulse 105 11/04/2018 11:53 AM EDT Temperature 37.6 C (99.7 F) 11/04/2018 11:53 AM EDT Respiratory Rate 16 11/04/2018 11:53 AM EDT Oxygen Saturation 99% 11/04/2018 11:53 AM EDT Inhaled Oxygen Concentration - - Weight 111.1 kg (245 lb) 11/04/2018 11:53 AM EDT Height 170.2 cm (5' 7 ) 11/04/2018 11:53 AM EDT Body Mass Index 38.37 11/04/2018 11:53 AM EDT Plan of Treatment Not on file Insurance [employer]ANCE Member Subscriber Plan / Payer (Ef fective 2021-Present) Name:Nora Casiano Member ID:[id number] Relation to Subscriber:Self Name:Nora Casiano Subscriber ID:[id number] Payer ID:Not on file Group ID:Not on file Type:Not on file Address: [address] [place] [address] Care Teams Batch Heat Treat Operator Relationship Specialty Start Date End Date Brody Fernandez MD [facility] [address] [place] [address] PCP - General Internal Medicine 11/04/18
[2024-09-27 07:23] LABS: Hematocrit 35.3 % (37.0-47.0); Hemoglobin 11.8 g/dL (12.2-16.2); Immature Granulocytes % 0.2 %; Mean Corpuscular HGB Conc 33.4 g/dL (31.8-35.4); Mean Corpuscular Hemoglobin 28.2 pg (27.0-31.2); Mean Corpuscular Volume 84.4 fl (81-99); Nucleated Red Blood Cells % 0 %; Platelet Count 292 K/mm3 (142-424); Red Blood Count 4.18 M/mm3 (4.20-5.40); Red Cell Distribution Width-SD 37.4 fL; White Blood Count 5.0 K/mm3 (4.8-10.8)
[2024-09-27 07:44] LABS: Alanine Aminotransferase 12 U/L (12-78); Albumin Level 4.1 g/dl (3.5-5.0); Albumin/Globulin Ratio 1.6 (1.1-1.8); Alkaline Phosphatase 49 U/L (38-126); Anion Gap 13.8 mEq/L (5-15); Aspartate Amino Transferase 17 U/L (14-36); Bilirubin,Total 0.4 mg/dl (0.2-1.3); Blood Urea Nitrogen 10 mg/dl (7-17); Calcium 9.2 mg/dl (8.4-10.2); Carbon Dioxide 25 mmol/L (22.0-30.0); Chloride 104 mmol/L (98-107); Cholesterol 134 mg/dl (140-200); Creatinine,Serum 0.60 mg/dl (0.52-1.04); Estimated Glomerular Filt Rate 115 ml/min (>60); GFR (African American) 139 ML/MIN (>60); Globulin 2.5 g/dL (1.3-3.2); Glucose 78 mg/dl (74-100); HDL Cholesterol 63 mg/dl (40-60); Potassium 3.8 mmoL/L (3.5-5.1); Sodium 139 mmol/L (136-145); Total Protein,Serum 6.6 g/dl (6.3-8.2); Triglycerides 90 mg/dl (30-150)
[2024-09-27 08:13] LABS: Thyroid Stimulating Hormone 1.34 uIU/mL (0.465-4.68)
== END 2024-09-27 23:59 | disposition home or self-care (01) ==
LOC: LAB 07:14
PROVIDERS: PCP Internal Medicine; Visit Provider Internal Medicine
DX: L73.9 Follicular disorder, unspecified (principal); E78.5 Hyperlipidemia, unspecified; E66.9 Obesity, unspecified
CPT/HCPCS: 36415; 80053; 80061; 84443; 85025